=== PATIENT | female | born 1960 | race African-American/Black ===

== ENCOUNTER 2016-10-02 04:39 | Inpatient (IN) | payer MEDICARE, MEDICAID ==
[~2016-10-02] VITALS: Ht 177.8 cm; Wt 95.4 kg
[~2016-10-02 04:39] MED LIST: AMLO5 PO; ASPI325T PO; CLON1TAB PO; DIOV320T PO; FURO1TAB93 PO; GABA600T PO; HYDR12.56 PO; JANU100T PO; K-LO20PO PO; LAMI150 PO; LEVEMIR SQ; MAGN400T PO; PROT40TA PO; ZIDO300T13 PO
[2016-10-02 04:44] VITALS: BP 185/86; PULSE 52; RESP 18; TEMP 98; O2SAT 100
[2016-10-02] MEDS ORDERED: ASPI325T PO (05:03)
[2016-10-02] MEDS ORDERED: PANT20 PO (05:03)
[2016-10-02] MEDS ORDERED: CLON0.5T PO (05:03)
[2016-10-02] MEDS ORDERED: ZIDO100C4 PO (05:03)
[2016-10-02] MEDS ORDERED: HYDR25TA5 PO (05:03)
[2016-10-02] MEDS ORDERED: POTAGRA (05:03)
[2016-10-02] MEDS ORDERED: POTACRY9 (05:03)
[2016-10-02] MEDS ORDERED: SITA1TAB2 PO (05:03)
[2016-10-02] MEDS ORDERED: LEVEMIR SQ (05:03)
[2016-10-02] MEDS ORDERED: POTA-163 PO (05:03)
[2016-10-02] MEDS ORDERED: GABA600T PO (05:03)
[2016-10-02] MEDS ORDERED: ABIL2TAB2 PO (05:05)
--- NOTE | 2016-10-02 05:15 | PD ---
HPI Chief Complaint: Medication Refill Request Time Seen by Provider: 05:00 Travel History International Travel<30 days: No Contact w/Intl Traveler<30days: No Traveled to known affect area: No History of Present Illness HPI 56-year-old female with history of diabetes, schizoaffective disorder, hypertension, here because she states she ran out of all of her medications and is requesting psychiatric medications. She states that she is hearing voices. No suicidal or homicidal ideation. No physical complaints. She denies drugs or alcohol. PFSH Past Medical History Asthma: Yes Autoimmune Disease: Yes (HIV) Bipolar Disorder: Yes Anxiety: Yes Depression: Yes Heart Rhythm Problems: No Cancer: No Cardiac Catheterization: Yes Cardiovascular Problems: Yes High Cholesterol: Yes Congestive Heart Failure: Yes Diabetes: Yes Patient Takes Glucophage: No Diminished Hearing: No Endocrine: No Gastrointestinal Disorders: No Genitourinary: No Hepatitis: Yes (A,C) Hypertension: Yes Immune Disorder: Yes (HIV) Implanted Vascular Access Dvce: No Musculoskeletal: No Neurologic: No Psychiatric: Yes (schizophrenia) Reproductive: No Respiratory: No Immunizations Current: Yes Schizophrenia: Yes Seizures: Yes ?: Not Menopausal: Yes : 9 Para: 3 Miscarriage: 3 : 3 Tubal Ligation: Yes Past Surgical History Section: Yes Coronary Artery Bypass Graft: No Gynecologic Surgery: Yes (TUBAL) Hysterectomy: Yes Other Surgery: Yes Family History Family Myocardial Infarction: Yes Social History Alcohol Use: Yes (OCC) Tobacco Use: Yes (2 CIGS PER DAY) Substance Use: No (PAST HX) Allergies-Medications (Allergen,Severity, Reaction): Coded Allergies: Clonidine (Verified Allergy, Severe, "MY BLOOD RUSHES UP", 04/26/16) Erythromycin (Verified Allergy, Severe, 04/26/16) Lisinopril (Verified Allergy, Severe, 04/26/16) Zoloft (Verified Allergy, Severe, Chest Pain, 04/26/16) PT STATES SHE GET TIGHTNESS IN THE CHEST WHEN TAKING THIS MEDICATION Kaletra (Verified Adverse Reaction, Unknown, STOMACH BURNING, NAUSEA, 04/26) Reported Meds & Prescriptions Reported Meds & Active Scripts Active Reported Abilify (Aripiprazole) 2 Mg Tab 1 Tab PO DAILY Zidovudine 100 Mg Cap 300 Mg PO Q12HR Januvia (Sitagliptin Phosphate) 100 Mg Tab 100 Mg PO DAILY Potassium Chloride ER (Potassium Chloride) 20 Meq Tab 20 Meq PO DAILY Protonix (Pantoprazole Sodium) 20 Mg Tab 20 Mg PO DAILY Levemir Inj (Insulin Detemir) 1,000 unit/ 10 ML Vial 20 Units SQ HS Do not mix with any other Insulin. Gabapentin 600 Mg Tab 600 Mg PO DAILY Hydrochlorothiazide 25 Mg Tab 25 Mg PO BID Aspirin 325 Mg Tab 325 Mg PO DAILY Clonazepam 0.5 Mg Tab 0.5 Mg PO BID Review of Systems Except as stated in HPI: all other systems reviewed are Neg Physical Exam Narrative GENERAL: Well-developed, well-nourished, comfortable, no acute distress. SKIN: Warm and dry. HEAD: Atraumatic. Normocephalic. EYES: Pupils equal and round. No scleral icterus. No injection or drainage. ENT: No nasal bleeding or discharge. Mucous membranes pink and moist. NECK: Trachea midline. No JVD. No nuchal rigidity. CARDIOVASCULAR: Regular rate and rhythm. No murmur appreciated. RESPIRATORY: No accessory muscle use. Clear to auscultation. Breath sounds equal bilaterally. GASTROINTESTINAL: Abdomen soft, non-tender, nondistended. Hepatic and splenic margins not palpable. MUSCULOSKELETAL: No obvious deformities. No clubbing. No cyanosis. No edema. NEUROLOGICAL: Awake and alert. No obvious cranial nerve deficits. Motor grossly within normal limits. Normal speech. No focal deficits. PSYCHIATRIC: Speaks with a low tone. Poor eye contact. Flat affect. Data Data Last Documented VS Vital Signs Date Time Temp Pulse Resp B/P Pulse Ox O2 Delivery O2 Flow Rate FiO2 10/02/16 04:44 98.0 52 18 185/86 100 Orders Complete Blood Count With Diff (10/02/16 05:07) Comprehensive Metabolic Panel (10/02/16 05:07) Drug Screen, Random Urine (10/02/16 05:07) Alcohol (Ethanol) (10/02/16 05:07) Salicylates (Aspirin) (10/02/16 05:07) Tylenol (Acetaminophen) (10/02/16 05:07) Psych Screen (10/02/16 05:07) Labs Laboratory Tests Test 10/02/16 05:15 White Blood Count 4.4 TH/MM3 Red Blood Count 3.49 MIL/MM3 Hemoglobin 11.4 GM/DL Hematocrit 34.5 % Mean Corpuscular Volume 98.7 FL Mean Corpuscular Hemoglobin 32.7 PG Mean Corpuscular Hemoglobin 33.2 % Concent Red Cell Distribution Width 16.6 % Platelet Count 308 TH/MM3 Mean Platelet Volume 6.7 FL Neutrophils (%) (Auto) 37.6 % Lymphocytes (%) (Auto) 51.8 % Monocytes (%) (Auto) 9.8 % Eosinophils (%) (Auto) 0.4 % Basophils (%) (Auto) 0.4 % Neutrophils # (Auto) 1.7 TH/MM3 Lymphocytes # (Auto) 2.3 TH/MM3 Monocytes # (Auto) 0.4 TH/MM3 Eosinophils # (Auto) 0.0 TH/MM3 Basophils # (Auto) 0.0 TH/MM3 CBC Comment DIFF FINAL Differential Comment Sodium Level 142 MEQ/L Potassium Level 3.2 MEQ/L Chloride Level 107 MEQ/L Carbon Dioxide Level 30.2 MEQ/L Anion Gap 5 MEQ/L Blood Urea Nitrogen 11 MG/DL Creatinine 0.65 MG/DL Estimat Glomerular Filtration 113 ML/MIN Rate Random Glucose 97 MG/DL Calcium Level 8.4 MG/DL Total Bilirubin 0.3 MG/DL Aspartate Amino Transf 14 U/L (AST/SGOT) Alanine Aminotransferase 19 U/L (ALT/SGPT) Alkaline Phosphatase 59 U/L Total Protein 7.0 GM/DL Albumin 3.4 GM/DL Salicylates Level LESS THAN 1.7 MG/DL Acetaminophen Level LESS THAN 2.0 MCG/ML Ethyl Alcohol Level LESS THAN 3 MG/DL MDM Medical Decision Making Medical Screen Exam Complete: Yes Emergency Medical Condition: Yes Differential Diagnosis Acute psychosis, schizoaffective disorder, Narrative Course Vital signs show heart rate 52, blood pressure 185/86, pulse ox 100% on room air , oral temp of 98F. CBC shows WBC 4.4, hemoglobin 11.4, hematocrit 34.5, platelets 308. CMP is remarkable for potassium 3.2 which was replaced orally, otherwise unremarkable. Tylenol, salicylates, and alcohol levels are negative. The patient is medically cleared for psychiatric evaluation and disposition by them. She has significant history of schizoaffective disorder and states that she is hearing voices. Diagnosis Primary Impression: Schizoaffective disorder Qualified Code: F25.9 - Schizoaffective disorder, unspecified type Luis Fernando Pugh MD Oct 02, 2016 05:15
[2016-10-02 05:20] VITALS: BP 177/75; PULSE 50; RESP 18; O2SAT 98
[2016-10-02 05:39] LABS: AUTOMATED NEUTROPHIL # 1.7 TH/MM3 (1.8-7.7); BASOPHIL % 0.4 % (0.0-2.0); EOSINOPHIL % 0.4 % (0.0-4.0); HEMATOCRIT 34.5 % (35.0-46.0); HEMO FLAGS DIFF FINAL; LYMPH % 51.8 % (9.0-44.0); LYMPHOCYTE # 2.3 TH/MM3 (1.0-4.8); MEAN CELL VOLUME 98.7 FL (80.0-100.0); MEAN CORPUSCULAR HEMOGLOBIN 32.7 PG (27.0-34.0); MEAN CORPUSCULAR HGB CONC 33.2 % (32.0-36.0); MONO % 9.8 % (0.0-8.0); NEUT % 37.6 % (16.0-70.0); PLATELET COUNT 308 TH/MM3 (150-450); RED BLOOD COUNT 3.49 MIL/MM3 (4.00-5.30); RED CELL DISTRIBUTION WIDTH 16.6 % (11.6-17.2); WHITE BLOOD COUNT 4.4 TH/MM3 (4.0-11.0)
[2016-10-02 05:56] LABS: ACETAMINOPHEN LESS THAN 2.0 MCG/ML (10.0-30.0); ALT (GPT) 19 U/L (10-53); ANION GAP 5 MEQ/L (5-15); AST (GOT) 14 U/L (15-37); BICARBONATE 30.2 MEQ/L (21.0-32.0); BLOOD UREA NITROGEN 11 MG/DL (7-18); CHLORIDE 107 MEQ/L (98-107); GLOMERULAR FILTRATION RATE 113 ML/MIN (>89); POTASSIUM 3.2 MEQ/L (3.5-5.1); SODIUM (NA) 142 MEQ/L (136-145)
[2016-10-02 06:03] LABS: ALKALINE PHOSPHATASE 59 U/L (45-117); TOTAL BILIRUBIN ADULT 0.3 MG/DL (0.2-1.0)
[2016-10-02] MEDS ORDERED: POTASSIUM CL 40 MEQ/30 ML LIQ UDC PO ONE (06:15)
[2016-10-02 06:39] VITALS: BP 168/76; PULSE 51; RESP 18; O2SAT 100
[2016-10-02 11:30] VITALS: BP 170/81; PULSE 56; RESP 18; TEMP 97.9; O2SAT 98
[2016-10-02] MEDS ORDERED: LINA290C PO (11:43)
[2016-10-02] MEDS ORDERED: LAMI150T PO (11:43)
[2016-10-02] MEDS ORDERED: KALETRA200 PO (11:43)
[2016-10-02] MEDS ORDERED: ZOLP5TAB3 PO (11:43)
[2016-10-02] MEDS ORDERED: TRAZ50TA12 PO (11:43)
[2016-10-02] MEDS ORDERED: LORazepam 1 MG TAB PO PRN (13:30)
[2016-10-02] MEDS ORDERED: LORazepam 2 MG/ML VIAL IM PRN (13:30)
[2016-10-02] MEDS ORDERED: MAGNESIUM HYDROXIDE SUSP 30 ML CUP PO PRN (13:30)
[2016-10-02] MEDS ORDERED: ALUMINUM/MAGNESIUM/SIMETH 30 ML CUP PO PRN (13:30)
[2016-10-02 15:13] VITALS: BP 101/74; PULSE 52; RESP 17; TEMP 98.7; O2SAT 99
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
--- NOTE | 2016-10-02 16:14 | PD.CONS ---
HPI Service [facility] Consult Requested By Psychiatry Reason for Consult Management of HIV and chronic conditions Primary Care Physician No Primary Care Physician Diagnoses: History of Present Illness This is a 56-year-old female with history of HIV, hypertension, CHF and diabetes among others, who is admitted to psych unit for auditory hallucinations. Per patient, she has been compliant with her HIV treatment, her last CD4 count is in the 600s. She last took her HIV medications yesterday. She denies any fever, chest pain, shortness of breath, urinary symptoms, diarrhea or abdominal pain. She does not have any other complaints. She was infected with HIV from IV drug use. Review of Systems ROS Limitations: Other (All other pertinent systems were reviewed and are negative.) Past Family Social History Allergies: Coded Allergies: Clonidine (Verified Allergy, Severe, "MY BLOOD RUSHES UP", 04/26/16) Erythromycin (Verified Allergy, Severe, 04/26/16) Lisinopril (Verified Allergy, Severe, 04/26/16) Zoloft (Verified Allergy, Severe, Chest Pain, 04/26/16) PT STATES SHE GET TIGHTNESS IN THE CHEST WHEN TAKING THIS MEDICATION Kaletra (Verified Adverse Reaction, Unknown, STOMACH BURNING, NAUSEA, 04/26) Past Medical History 1. Coronary artery disease with a stent placed August 2012 in [place]. No records available for review. 2. Positive HIV status. 3. Hypertension. 4. Anemia. 5. GERD. 6. Previous noncompliance with medication. 7. Dyslipidemia. 8. Anxiety/depression/schizophrenia. 9. CHF. 10. Diabetes. 11. Hepatitis A and C. 12. Hypertension. 13. Tobaccoism. 14. Seizure disorder. Past Surgical History 1. Bilateral tubal ligation. 2. . 3. Cardiac catheterization. 4. Partial hysterectomy. Family History Dad had history of diabetes, CVA-stroke Mom had history of hypertension, diabetes Social History Smokes about 2 cigarettes a day, remote IV drug use, occasional alcohol use. Physical Exam Vital Signs Vital Signs Date Time Temp Pulse Resp B/P Pulse Ox O2 Delivery O2 Flow Rate FiO2 10/02/16 15:13 98.7 52 17 101/74 99 10/02/16 11:30 97.9 56 18 170/81 98 Room Air 10/02/16 06:39 51 18 168/76 100 Room Air 10/02/16 05:20 50 18 177/75 98 Room Air 10/02/16 04:44 98.0 52 18 185/86 100 Physical Exam Not in distress, well-nourished, looks stated age PERRL, pink conjunctiva without injection, anicteric Nose without bleeding, airway patent, Supple neck Normal rate and regular rhythm, no murmurs gallops or rubs appreciated. Clear to auscultation and symmetric bilaterally, normal respiratory effort. Normal bowel sounds, soft, non-tender, nondistended, no guarding. Obese Extremities without clubbing, cyanosis, trace edema. No rash of generalized distribution. Skin is warm and dry. AAO x3, no cranial nerve deficits, moves all 4 extremities, no focal neurologic deficits Laboratory Laboratory Tests Test 10/02/16 05:15 White Blood Count 4.4 Red Blood Count 3.49 Hemoglobin 11.4 Hematocrit 34.5 Mean Corpuscular Volume 98.7 Mean Corpuscular Hemoglobin 32.7 Mean Corpuscular Hemoglobin 33.2 Concent Red Cell Distribution Width 16.6 Platelet Count 308 Mean Platelet Volume 6.7 Neutrophils (%) (Auto) 37.6 Lymphocytes (%) (Auto) 51.8 Monocytes (%) (Auto) 9.8 Eosinophils (%) (Auto) 0.4 Basophils (%) (Auto) 0.4 Neutrophils # (Auto) 1.7 Lymphocytes # (Auto) 2.3 Monocytes # (Auto) 0.4 Eosinophils # (Auto) 0.0 Basophils # (Auto) 0.0 CBC Comment DIFF FINAL Differential Comment Sodium Level 142 Potassium Level 3.2 Chloride Level 107 Carbon Dioxide Level 30.2 Anion Gap 5 Blood Urea Nitrogen 11 Creatinine 0.65 Estimat Glomerular Filtration 113 Rate Random Glucose 97 Calcium Level 8.4 Total Bilirubin 0.3 Aspartate Amino Transf 14 (AST/SGOT) Alanine Aminotransferase 19 (ALT/SGPT) Alkaline Phosphatase 59 Total Protein 7.0 Albumin 3.4 Salicylates Level LESS THAN 1.7 Acetaminophen Level LESS THAN 2.0 Ethyl Alcohol Level LESS THAN 3 Result Diagram: 10/02/1651410/02/1615 Assessment and Plan Assessment and Plan This is a 56-year-old female admitted to psych unit for auditory hallucinations. We are being consulted for management of chronic conditions including HIV. HIV-symptoms to be controlled, no leukocytosis, last CD4 count allegedly 600. Lymphocytes are adequate. No fever or chills. Restart HAART. No renal insufficiency. Diabetes mellitus-restart Januvia, Levemir, with sliding scale insulin. Hypertension, controlled-restart hydrochlorothiazide, clonidine as needed. Mild hypokalemia-replace Thank you very much for this consult, we will follow along with you. Noe Saini MD Oct 02, 2016 16:14
[2016-10-02] MEDS ORDERED: cloNIDine HCL 0.1 MG TAB PO PRN (16:30)
[2016-10-02 19:28] VITALS: BP 154/82; PULSE 50; RESP 18; TEMP 98.4; O2SAT 100
[2016-10-02] MEDS: ARIPiprazole 10 MG TAB PO SCH (20:51)
[2016-10-02] MEDS: clonazePAM 0.5 MG TAB PO PRN (20:53)
[2016-10-02] MEDS: INSULIN ASPART SUPPLEMENTAL SCALE SQ SCH (21:00)
[2016-10-02] MEDS: REMOVE OLD NICOTINE PATCH T-DERMAL SCH (21:00)
[2016-10-02] MEDS ORDERED: traZODone HCL 50 MG TAB PO SCH (21:00)
[2016-10-02] MEDS: LOPINAVIR/RITONAVIR 200 MG/50 MG TAB PO SCH (22:43)
[2016-10-02] MEDS: ZIDOVUDINE 100 MG CAP PO SCH (22:43)
[2016-10-02] MEDS: HYDROCHLOROTHIAZIDE 25 MG TAB PO SCH (22:44)
[2016-10-02] MEDS: INSULIN DETEMIR 100 UNITS/ML VIAL SQ SCH (22:45)
[2016-10-03] MEDS: clonazePAM 0.5 MG TAB PO PRN ×2 (05:50→20:21)
[2016-10-03] MEDS: INSULIN ASPART SUPPLEMENTAL SCALE SQ SCH ×5 (06:02→20:23)
[2016-10-03] MEDS: ACETAMINOPHEN 325 MG TAB PO PRN (06:05)
[2016-10-03 06:17] VITALS: BP 199/80; PULSE 56; RESP 18; TEMP 97.8; O2SAT 99
[2016-10-03 07:58] LABS: ANION GAP 5 MEQ/L (5-15); BICARBONATE 31.7 MEQ/L (21.0-32.0); BLOOD UREA NITROGEN 10 MG/DL (7-18); CHLORIDE 102 MEQ/L (98-107); GLOMERULAR FILTRATION RATE 90 ML/MIN (>89); POTASSIUM 3.4 MEQ/L (3.5-5.1); SODIUM (NA) 139 MEQ/L (136-145)
[2016-10-03 08:00] VITALS: BP 199/80; PULSE 56; RESP 18; TEMP 97.8; O2SAT 99
[2016-10-03 08:00] LABS: HDL CHOLESTEROL 65.6 MG/DL (40.0-60.0); LDL CHOLESTEROL 91 MG/DL (0-99)
[2016-10-03] MEDS: HYDROCHLOROTHIAZIDE 25 MG TAB PO SCH ×2 (09:00→20:17)
[2016-10-03] MEDS: FLUoxetine HCL 20 MG CAP PO SCH (09:00)
[2016-10-03] MEDS: LINACLOTIDE 290 MCG PO SCH (09:00)
[2016-10-03] MEDS ORDERED: ARIPiprazole 5 MG TAB PO SCH (09:00)
[2016-10-03] MEDS: GABAPENTIN 300 MG CAP PO SCH (10:05)
[2016-10-03] MEDS: PANTOPRAZOLE SOD 20 MG DELAYED RELEASE TAB PO SCH (10:05)
[2016-10-03] MEDS: POTASSIUM CHLORIDE 20 MEQ CONTROLLED RELEASE TAB PO SCH (10:05)
[2016-10-03] MEDS: ASPIRIN 325 MG TAB PO SCH (10:05)
[2016-10-03] MEDS: LOPINAVIR/RITONAVIR 200 MG/50 MG TAB PO SCH ×2 (12:19→20:17)
[2016-10-03] MEDS: ZIDOVUDINE 100 MG CAP PO SCH ×2 (12:19→20:18)
[2016-10-03] MEDS: NICOTINE 21 MG/24 HR PATCH T-DERMAL SCH (12:21)
[2016-10-03] MEDS: REMOVE OLD NICOTINE PATCH T-DERMAL SCH (12:21)
--- NOTE | 2016-10-03 12:31 | HHI.PYPN ---
Subjective Remarks Pt seen and discussed with staff. She reports that mood is somewhat better since restarting medication and voices telling her to harm herself are present but decreasing. Hospitalist is following for HTN. RN notified hospitalist of current BP readings. RN reports that pt initially refused BP medication but later took it. Discussed with pt risks of uncontrolled BP including CVA and and need for compliance. Pt voiced understanding and states is agreeable for treatment. No HI. No medication side effects. She denies any pain or physical discomfort. No CP, headache or vision changes. Objective Alert: Yes [place]: Person, Situation Mood: Depressed Affect: Flat Memory Intact: Immediate, Recent, Remote Hallucinations: Auditory (command-hurt self) Delusions: No Delusion Type: Other (none) Suicidal: Ideation (denies) Homicidal: Ideation (denies) Insight/Judgement limited Labs Test 10/03/16 07:00 Sodium Level 139 MEQ/L Potassium Level 3.4 MEQ/L Chloride Level 102 MEQ/L Carbon Dioxide Level 31.7 MEQ/L Anion Gap 5 MEQ/L Blood Urea Nitrogen 10 MG/DL Creatinine 0.79 MG/DL Estimat Glomerular Filtration 90 ML/MIN Rate Random Glucose 85 MG/DL Calcium Level 9.0 MG/DL Triglycerides Level 83 MG/DL Cholesterol Level 173 MG/DL LDL Cholesterol 91 MG/DL HDL Cholesterol 65.6 MG/DL Cholesterol/HDL Ratio 2.63 RATIO Vitals/IOs Vital Signs Date Time Temp Pulse Resp B/P Pulse Ox O2 Delivery O2 Flow Rate FiO2 10/03/16 08:00 97.8 56 18 199/80 99 10/02/16 11:30 Room Air Assessment & Plan Problem List: (1) Schizoaffective disorder ICD Code: F25.9 Assessment & Plan Continue current tx plan. Continue to encourage medication compliance. Estimated LOS: days Justification for Cont. Inpt. impairments in reality construction & safety -command auditory hallucination instructing to hurt self Request HC Surrog/Guard Advoc?: No Problem Qualifiers (1) Schizoaffective disorder: Qualified Code: F25.1 - Schizoaffective disorder, depressive type Isabel Torres MD Oct 03, 2016 12:31
[2016-10-03] MEDS: amLODIPine BESYLATE 5 MG TAB PO SCH (17:54)
[2016-10-03 19:20] VITALS: BP 190/81; PULSE 48; RESP 17; TEMP 98.6; O2SAT 97
[2016-10-03] MEDS: INSULIN DETEMIR 100 UNITS/ML VIAL SQ SCH (20:17)
[2016-10-03] MEDS: ARIPiprazole 10 MG TAB PO SCH (20:18)
[2016-10-04] MEDS: ACETAMINOPHEN 325 MG TAB PO PRN (04:16)
[2016-10-04 06:09] VITALS: BP 145/70; PULSE 54; RESP 18; TEMP 98.1; O2SAT 95
[2016-10-04] MEDS: INSULIN ASPART SUPPLEMENTAL SCALE SQ SCH ×4 (07:00→21:00)
[2016-10-04] MEDS: LOPINAVIR/RITONAVIR 200 MG/50 MG TAB PO SCH ×2 (08:54→21:02)
[2016-10-04] MEDS: ASPIRIN 325 MG TAB PO SCH (08:54)
[2016-10-04] MEDS: PANTOPRAZOLE SOD 20 MG DELAYED RELEASE TAB PO SCH (08:54)
[2016-10-04] MEDS: HYDROCHLOROTHIAZIDE 25 MG TAB PO SCH ×2 (08:54→21:02)
[2016-10-04] MEDS: ZIDOVUDINE 100 MG CAP PO SCH ×2 (08:55→21:02)
[2016-10-04] MEDS: GABAPENTIN 300 MG CAP PO SCH (08:55)
[2016-10-04] MEDS: FLUoxetine HCL 20 MG CAP PO SCH (08:55)
[2016-10-04] MEDS: amLODIPine BESYLATE 5 MG TAB PO SCH (08:55)
[2016-10-04] MEDS: POTASSIUM CHLORIDE 20 MEQ CONTROLLED RELEASE TAB PO SCH (08:55)
[2016-10-04] MEDS: LINACLOTIDE 290 MCG PO SCH (09:00)
[2016-10-04] MEDS: NICOTINE 21 MG/24 HR PATCH T-DERMAL SCH (09:00)
[2016-10-04 09:32] LABS: HEMOGLOBIN A1a 0.8 %; HEMOGLOBIN A1b 0.8 %; HEMOGLOBIN F 1.5 %; HEMOGLOBIN LA1C 1.7 %; HEMOGLOBIN P3 3.4 %
--- NOTE | 2016-10-04 10:24 | HHI.PR ---
Subjective Remarks Follow-up for diabetes Diabetes is good, hemoglobin A1c is 5.8, no complaints. Agreed to start statin. No chest pain or shortness of breath. Mild headaches but improved. No focal deficits. Objective Vitals Vital Signs Date Time Temp Pulse Resp B/P Pulse Ox O2 Delivery O2 Flow Rate FiO2 10/04/16 06:09 98.1 54 18 145/70 95 10/03/16 19:20 98.6 48 17 190/81 97 Result Diagram: 10/02/16 0515 10/03/16 0700 Objective Remarks Not in distress, well-nourished, looks stated age PERRL, pink conjunctiva without injection, anicteric Nose without bleeding, airway patent, Supple neck Normal rate and regular rhythm, no murmurs gallops or rubs appreciated. Clear to auscultation and symmetric bilaterally, normal respiratory effort. Normal bowel sounds, soft, non-tender, nondistended, no guarding. Obese Extremities without clubbing, cyanosis, trace edema. No rash of generalized distribution. Skin is warm and dry. AAO x3, no cranial nerve deficits, moves all 4 extremities, no focal neurologic deficits A/P Assessment and Plan This is a 56-year-old female admitted to psych unit for auditory hallucinations. We were consulted for management of chronic conditions including HIV. HIV-symptoms to be controlled, no leukocytosis, last CD4 count allegedly 600. Lymphocytes are adequate. No fever or chills. Continue HAART. No renal insufficiency. Diabetes mellitus- continue Januvia, Levemir, with sliding scale insulin. Hypertension, uncontrolled-continue hydrochlorothiazide, start Norvasc, clonidine as needed. Increase Norvasc tomorrow if still uncontrolled. Dyslipidemia-ASCVD score 17.5, start statin, patient agreed. Mild hypokalemia-replaced Noe Saini MD Oct 04, 2016 10:24
--- NOTE | 2016-10-04 13:15 | HHI.PYPN ---
Subjective Remarks Pt seen and discussed with staff. Pt reports mood is improved and she denies AH today. No medication side effects. She is compliant. No SI/HI. She c/o of seasonal allergies and post-nasal drip. Objective Alert: Yes Remer: Person, Place, Date, Situation Mood: Calm, Depressed Affect: Flat Memory Intact: Immediate, Recent, Remote Hallucinations: Other (none) Delusions: No Delusion Type: Other (none) Suicidal: Ideation (denies) Homicidal: Ideation (denies) Insight/Judgement limited Vitals/IOs Vital Signs Date Time Temp Pulse Resp B/P Pulse Ox O2 Delivery O2 Flow Rate FiO2 10/04/16 06:09 98.1 54 18 145/70 95 10/02/16 11:30 Room Air Assessment & Plan Problem List: (1) Schizoaffective disorder ICD Code: F25.9 Assessment & Plan Pt improving. Continue current tx plan. Claritin for seasonal allergies. Estimated LOS: days Justification for Cont. Inpt. risk of decompensation Request HC Surrog/Guard Advoc?: No Problem Qualifiers (1) Schizoaffective disorder: Qualified Code: F25.1 - Schizoaffective disorder, depressive type Isabel Torres MD Oct 04, 2016 13:15
[2016-10-04 19:40] VITALS: BP 122/74; PULSE 62; RESP 18; TEMP 98.3; O2SAT 96
[2016-10-04] MEDS: REMOVE OLD NICOTINE PATCH T-DERMAL SCH (21:00)
[2016-10-04] MEDS ORDERED: PRAVASTATIN SOD 40 MG TAB PO SCH (21:00)
[2016-10-04] MEDS: INSULIN DETEMIR 100 UNITS/ML VIAL SQ SCH (21:02)
[2016-10-04] MEDS: ARIPiprazole 10 MG TAB PO SCH (21:02)
[2016-10-04] MEDS: clonazePAM 0.5 MG TAB PO PRN (21:07)
[2016-10-05 05:34] VITALS: BP 156/69; PULSE 77; RESP 18; TEMP 98.4
[2016-10-05] MEDS: INSULIN ASPART SUPPLEMENTAL SCALE SQ SCH ×2 (07:00→11:00)
[2016-10-05] MEDS: ASPIRIN 325 MG TAB PO SCH (08:38)
[2016-10-05] MEDS: LOPINAVIR/RITONAVIR 200 MG/50 MG TAB PO SCH (08:38)
[2016-10-05] MEDS: amLODIPine BESYLATE 5 MG TAB PO SCH (08:39)
[2016-10-05] MEDS: HYDROCHLOROTHIAZIDE 25 MG TAB PO SCH (08:39)
[2016-10-05] MEDS: ZIDOVUDINE 100 MG CAP PO SCH (08:39)
[2016-10-05] MEDS: FLUoxetine HCL 20 MG CAP PO SCH (08:39)
[2016-10-05] MEDS: POTASSIUM CHLORIDE 20 MEQ CONTROLLED RELEASE TAB PO SCH (08:39)
[2016-10-05] MEDS: GABAPENTIN 300 MG CAP PO SCH (08:39)
[2016-10-05] MEDS: NICOTINE 21 MG/24 HR PATCH T-DERMAL SCH (08:40)
[2016-10-05] MEDS: PANTOPRAZOLE SOD 20 MG DELAYED RELEASE TAB PO SCH (08:40)
[2016-10-05] MEDS: clonazePAM 0.5 MG TAB PO PRN (08:47)
[2016-10-05] MEDS: LINACLOTIDE 290 MCG PO SCH (09:00)
[2016-10-05] MEDS ORDERED: AMLO5 PO (12:56)
[2016-10-05] MEDS ORDERED: LEVEMIR SQ (12:56)
[2016-10-05] MEDS ORDERED: SITA1TAB2 PO (12:56)
[2016-10-05] MEDS ORDERED: ARIP1TAB12 PO (13:51)
[2016-10-05] MEDS ORDERED: FLUO20CA4 PO (13:51)
--- NOTE | 2016-10-05 13:57 | HHI.DS ---
Psychiatry Discharge Summary Inpatient Psychiatric care?: Yes Advance Directive: No Reason Not Provided: PATIENT REFUSES Mental Health AdvanceDirective: No Health Care Proxy: No Admission Admission Date Oct 02, 2016 at 12:40 Admission Diagnosis: (1) Schizoaffective disorder ICD Code: F25.9 Brief History This is a 56-year-old black female who came as a voluntary basis because she was having some difficulty with her medication. She claimed that she has not taken her medication for the past 7 or 8 days. She used to get her prescription for her PCP. Denied any regular follow-up for psychiatrist. Patient was living with her sister but then got into some kind of argument and fight and was asked to leave. Prior to that she was living in [place] and before then she was from [place]. She claimed that she has been diagnosed with schizoaffective disorder ever since she was 14 and has been hospitalized 10-12 times with voices telling her to hurt herself. Has attempted to overdose in the past. Patient claimed that she sleeps fairly well. Feels under stress because she does not have any place to go to and would like our social insurance specialist to assist her in finding a place to stay and outpatient follow-up with the medication Tobacco Use In Past 30 Days: Cigarettes But Not Daily Alcohol Use: 2-4 Times Per Month Hospital Course Patient was admitted to a locked, inpatient psychiatric unit. A general medical consultation was obtained and the patient was medically cleared prior to discharge. Patient was seen and examined daily on the unit by psychiatry and also visited by counselor. Appropriate precautions were in place throughout patient's hospital stay. Medications were adjusted. Patient tolerated medications well without side effects. There was no evidence of any suicidality or homicidality on the inpatient unit. Patient remained in generally good behavioral control and was medication compliant. She has been sleeping and eating fairly well per notes. On the day of discharge: Patient seen and examined with counselor. Chart reviewed. Case discussed with nursing staff who reports patient has been no behavioral problem. On my examination today, the patient requests discharge from the inpatient psychiatric unit. She is pleased to be back on psychotropic medications and is tolerating these well without side effects. She denies any suicidal or homicidal ideation. She denies any audiovisual hallucinations, and I can elicit no delusional beliefs. No issues with mood. No physical complaints. Weighing the acute, chronic, and protective factors and based on the available evidence, I corrugator machine operator to a reasonable degree of medical certainty that the patient is at low imminent risk of harm to self or others from a mental illness as defined under the [place] act and her level of function appears to be adequate for outpatient care. I did offer to retain the patient on the inpatient psychiatric unit for additional observation , but she declined. I have no basis to retain this patient involuntarily at this time and so will arrange for her discharge today. Patient is to follow-up psychiatrically as arranged by counselor and also with primary care and infectious disease. I counseled the patient regarding warning signs for need to return to the psychiatric emergency room as part of the general safety plan. Results Blood Pressure 156 / 69 Vital Signs Date Time Temp Pulse Resp B/P Pulse Ox O2 Delivery O2 Flow Rate FiO2 10/05/16 05:34 98.4 77 18 156/69 10/04/16 19:40 96 10/02/16 11:30 Room Air Laboratory Tests Test 10/03/16 07:00 Potassium Level 3.4 MEQ/L (3.5-5.1) HDL Cholesterol 65.6 MG/DL (40.0-60.0) Laboratory Results Test 10/03/16 07:00 Hemoglobin A1c 5.8 % (4.3-6.0) Triglycerides Level 83 MG/DL (42-150) Cholesterol Level 173 MG/DL (120-200) LDL Cholesterol 91 MG/DL (0-99) HDL Cholesterol 65.6 MG/DL (40.0-60.0) Summary of Procedures None done Imaging None done Pending results at discharge: No Medications # of Antipsychotic meds at D/C: 1 Approp Antipsych med options 1 - Minimum of three failed multiple trials of monotherapy. 2 - Documented plan to taper to monotherapy due to previous use of multiple meds OR cross-taper in progress at D/C. 3 - Documentation of augmentation of Clozapine. 4 - Justification other than those listed in allowable values 1-3, document here : Discharge Discharge Date: Oct 05, 2016 Discharge Diagnosis: (1) Schizoaffective disorder Diagnosis: Principal (stable) ICD Code: F25.9 GAF at discharge is 55 Mental Status Exam at Disch Patient is casually dressed. She is well groomed. She is awake and alert and oriented 3. No evidence of delirium. No abnormal motor movements noted. Speech is within normal limits for rate, tone and volume. Language and fund of knowledge seemed average for age. Mood is fair and affect is full and reactive. Thought process linear. No loosening of associations. No evident delusions. Denies audiovisual hallucinations and does not appear internally stimulated. Denies suicidal or homicidal ideation. Insight and judgment are fair. Pt Condition on Discharge: Stable Discharge Disposition: Discharge Home Discharge Instructions Diet Instructions: Diabetic Diet Activities you can perform: Weight Bearing as Sophie Scheduled Appointment: Rory Tobar Appointment Date: Oct 08, 2016 Appointment Time: 7:30am New Medications: Amlodipine (Norvasc) 5 Mg Tab 5 MG PO DAILY HTN Days 30 TAB Aripiprazole (Aripiprazole) 10 Mg Tab 10 MG PO HS Mental Health Days 15 Ref 1 TAB Fluoxetine (Fluoxetine) 20 Mg Cap 20 MG PO DAILY Mental Health Days 15 Ref 1 CAP Continued Medications: Aspirin (Aspirin) 325 Mg Tab 325 MG PO DAILY #30 Ref 0 TAB Clonazepam (Clonazepam) 0.5 Mg Tab 0.5 MG PO BID #60 Ref 0 TAB Gabapentin (Gabapentin) 600 Mg Tab 600 MG PO DAILY #60 Ref 0 TAB Hydrochlorothiazide (Hydrochlorothiazide) 25 Mg Tab 25 MG PO BID #30 TAB Insulin Detemir Inj (Levemir Inj) 1,000 unit/ 10 ML Vial 20 UNITS SQ HS Do not mix with any other Insulin. Blood Sugar Management Days 30 Ref 0 VIAL (This prescription has been renewed) Lamivudine-Zidovudine (Lamivudine-Zidovudine) 150-300 Mg Tab 1 TAB PO BID Mgmt Viral Infection #60 Ref 0 TAB Linaclotide (Linzess) 290 Mcg Cap 290 MCG PO DAILY Ref 0 CAP Lopinavir-Ritonavir (Kaletra) 200-50 Mg Tab 2 TAB PO Q12HR Fill this 5 day prescription first & begin taking Kaletra 12 hours after the first dose received in the Emergency Department as prescribed. Mgmt Viral Infection #18 Ref 0 TAB Pantoprazole (Protonix) 20 Mg Tab 20 MG PO DAILY Reflux #30 Ref 0 TAB Potassium Chloride ER (Potassium Chloride ER) 20 Meq Tab 20 MEQ PO DAILY Electrolyte Replacement #30 Ref 0 TAB Sitagliptin (Januvia) 100 Mg Tab 100 MG PO DAILY Blood Sugar Management #30 Ref 0 TAB (This prescription has been renewed) Trazodone (Trazodone) 50 Mg Tab 50 MG PO HS Control Depression #30 Ref 0 TAB Discontinued Medications: Aripiprazole (Abilify) 2 Mg Tab 1 TAB PO DAILY #30 Ref 0 TAB Zidovudine (Zidovudine) 100 Mg Cap 300 MG PO Q12HR Mgmt Viral Infection #180 Ref 0 CAP Zolpidem (Zolpidem) 5 Mg Tab 5 MG PO HS PRN INSOMNIA Ref 0 TAB Discharge Time <= 30 minutes Discharge/Advance Care Plan Health Problems: (1) Schizoaffective disorder Goals to promote your health * To prevent worsening of your condition and complications * To maintain your health at the optimal level Directions to meet your goals Take your medications as prescribed Follow your dietary instruction Follow activity as directed Keep your appointments as scheduled Take your immunizations and boosters as scheduled If your symptoms worsen call your PCP, if no PCP go to Urgent Care Center or Emergency Room For 05/04 questions related to your inpatient stay or results of tests pending at discharge, please contact Dr. Aydin Valles at Smoking is Dangerous to Your Health. Avoid second hand smoking Problem Qualifiers (1) Schizoaffective disorder: Qualified Code: F25.1 - Schizoaffective disorder, depressive type Aydin Valles MD Oct 05, 2016 13:57
== END 2016-10-05 14:33 | disposition home or self-care (01) | DRG 885 ==
LOC: NEPE 04:39 → NEDA 12:40 → H270 14:35
PROVIDERS: ADMIT Psychiatry & Neurology Psychiatry; ATTEND Psychiatry & Neurology Psychiatry
DX: F25.9 Schizoaffective disorder, unspecified (principal); B20 Human immunodeficiency virus [HIV] disease; I50.9 Heart failure, unspecified; E11.9 Type 2 diabetes mellitus without complications; Z79.4 Long term (current) use of insulin; Z91.14 Patient's other noncompliance with medication regimen; Z59.0 Homelessness; E87.6 Hypokalemia; F17.210 Nicotine dependence, cigarettes, uncomplicated; I10 Essential (primary) hypertension; I25.10 Atherosclerotic heart disease of native coronary artery without angina pectoris; Z95.5 Presence of coronary angioplasty implant and graft; Z79.82 Long term (current) use of aspirin; J30.9 Allergic rhinitis, unspecified; B19.20 Unspecified viral hepatitis C without hepatic coma; Z86.19 Personal history of other infectious and parasitic diseases
CPT/HCPCS: 80048; 80053; 80061; 80320; 80329; 82948; 83036; 85025; 99284; G0480; J1815